=== PATIENT | female | born 1995 | race Caucasian/White ===

== ENCOUNTER 2023-07-17 10:30 | Inpatient (IN) | payer BC ==
[2023-07-17] MEDS ORDERED: Lidocaine PF 2% (20 MG/ML) 5 ML VIAL ONE (12:52)
[2023-07-17] MEDS ORDERED: ROPivacaine PF 0.2% 200 ML IV ONE (13:28)
[2023-07-18] MEDS ORDERED: ROPivacaine PF 0.2% 200 ML IV ONE (00:44)
[2023-07-18] MEDS ORDERED: Chloroprocaine PF 3% (30 MG/ML) 20 ML VIAL ONE (03:31)
[2023-07-18] MEDS ORDERED: Oxytocin 10 UNITS/ML VIAL ONE (03:39)
[2023-07-18] MEDS ORDERED: Phenylephrine 10 MG/ML VIAL ONE (03:39)
[2023-07-18] MEDS ORDERED: NS 10 ML IV ONE (03:40)
[2023-07-18] MEDS ORDERED: Methylergonovine 0.2 MG/ML 1 ML AMPUL ONE (03:41)
[2023-07-18] MEDS ORDERED: fentaNYL 50 MCG/ML 2 ML VIAL ONE ×3 (04:01→04:32)
[2023-07-18] MEDS ORDERED: Ketorolac 30 MG/ML VIAL ONE (04:20)
[2023-07-18] MEDS ORDERED: Ondansetron 4 MG/2 ML VIAL ONE (04:20)
== END 2023-07-21 10:00 | disposition home or self-care (01) | DRG 786 ==
LOC: LDRO 10:30 → OB 11:15
PROVIDERS: ADMIT Obstetrics & Gynecology
PROC: 10D00Z1 Extraction of Products of Conception, Low, Open Approach (ICD-10-PCS; principal; 2023-07-18)
PROC: 3E033VJ Introduction of Other Hormone into Peripheral Vein, Percutaneous Approach (ICD-10-PCS; 2023-07-18)
PROC: 10907ZC Drainage of Amniotic Fluid, Therapeutic from Products of Conception, Via Natural or Artificial Opening (ICD-10-PCS; 2023-07-18)
DX: O48.0 Post-term pregnancy (principal); O41.1230 Chorioamnionitis, third trimester, not applicable or unspecified; O10.92 Unspecified pre-existing hypertension complicating childbirth; O24.424 Gestational diabetes mellitus in childbirth, insulin controlled; O76 Abnormality in fetal heart rate and rhythm complicating labor and delivery; O77.0 Labor and delivery complicated by meconium in amniotic fluid; O99.214 Obesity complicating childbirth; Z3A.40 40 weeks gestation of pregnancy; Z37.0 Single live birth; Z88.6 Allergy status to analgesic agent; Z88.8 Allergy status to other drugs, medicaments and biological substances
CPT/HCPCS: J0690; J1885; J2210; J2371; J2401; J2405; J2590; J2795; J3010